=== PATIENT | male | born 1985 | race African-American/Black ===

== ENCOUNTER → 2017-08-07 | Outpatient (CLI) | payer OTHER ==
[~2017-08-07] MED LIST: BUPR75TA8 PO; HYDCR1CL TOP; IBUP-1105 PO; SRQ/100 PO
== END | disposition home or self-care (01) ==
LOC: C.LAB1850 11:02
PROVIDERS: ATTEND Psychiatry & Neurology Psychiatry
DX: Z79.899 Other long term (current) drug therapy (principal)